=== PATIENT | male | born 1935 | race Caucasian/White ===

== ENCOUNTER 2016-04-13 16:41 | Observation (INO) | payer MEDICARE ==
[2016-04-13] MEDS ORDERED: ONDANSETRON HCL/PF 2 MG/ML VIAL IV ONE (17:04)
[2016-04-13] MEDS ORDERED: NORMAL SALINE 1,000 ML in NORMAL SALINE 1,000 ML IV ONE (17:04)
[2016-04-13 17:19] LABS: Hematocrit 39.7 % (42.0-52.0); Hemoglobin 13.8 gm/dL (13.5-18.0); Mean Cell Volume 96.1 fl (78-100); Mean Corpuscular Hemoglobin 33.4 pg (27-31); Mean Corpuscular Hgb Conc 34.8 g/dl (32-36); Mean Platelet Volume 9.1 fl (6.0-9.5); Neutrophil # 4.6 K/mm3 (1.3-6.0); Neutrophil % 85.5 % (42-75.0); Platelet Count 192 K/mm3 (150-450); Red Blood Count 4.13 M/mm3 (4.7-6.0); White Blood Count 5.4 K/mm3 (4.0-10.5)
[2016-04-13 17:35] LABS: ALT 25 U/L (19-67); AST 19 U/L (0-48); Albumin * 4.1 gm/dl (3.4-5.0); Alkaline Phosphatase * 47 U/L (50-170); Anion Gap 16.7 mmol/L (6.8-13.8); BUN/Creatinine Ratio 18.5 (9.0-21.6); Bilirubin, Total 0.6 mg/dL (0.0-1.1); Blood Urea Nitrogen 22 mg/dL (6-23); Ca. Corrected For Albumin 8.3 mg/dL (8.4-10.2); Calcium * 8.7 mg/dL (7.9-10.9); Carbon Dioxide 23.4 mmol/L (24-32.6); Chloride 102 mmol/L (97-106); Glucose * 150 mg/dL (70-110); Magnesium 1.6 mg/dL (1.2-2.8); Potassium 4.1 mmol/L (3.4-4.6); Sodium 138 mmol/L (132-142); Total Protein 7.3 gm/dL (6.2-8.2)
[2016-04-13] MEDS ORDERED: ONDANSETRON HCL/PF 2 MG/ML VIAL ONE (18:13)
--- NOTE | 2016-04-13 18:39 | ERNOTE ---
Medical Problem HPI - General Chief Complaint: General Assessment Time Seen by Provider: 04/13/16 16:53 Source: patient, family Exam Limitations: no limitations - Immun/Allergies/Home Medications Immunizations: IMMUNIZATION HX Immunizations Up to Date Yes History of Influenza Vaccine Yes Hx Pneumococcal Vaccination More Information Required Allergies/Adverse Reactions: Allergies No Known Allergies Allergy (Verified 04/13/16 16:53) Home Medications: HOME MEDICATIONS Glipizide 10 mg PO BID 01/13/14 [Last Taken Unknown] Metformin HCl 850 mg PO BID 01/13/14 [Last Taken Unknown] Aspirin [Durlaza] 162 mg PO HS 04/13/16 [Last Taken Unknown] Lisinopril 04/13/16 [Last Taken Unknown] - History of Present History Narrative: Patient was found at his house by his brother and sister. Patient was significantly weak was unable to get up and care for himself and actually been urinating in the bed due to the profound weakness. He stated that he started getting weak with a sore throat on Tuesday has been getting progressively worse over the last 4 days. At this point patient is unable to care for himself in any capacity. Timing: constant, getting worse Severity: severe Review of Systems - Review of Systems Constitutional: Present: See HPI, recent illness, fever, weakness EYE: Present: no symptoms reported ENT: Present: sore throat Respiratory: Present: no symptoms reported Cardiology: Present: no symptoms reported Gastrointestinal/Abdominal: Present: no symptoms reported Genitourinary: Present: no symptoms reported Musculoskeletal: Present: no symptoms reported Skin: Present: no symptoms reported Neurological: Present: no symptoms reported Endocrine: Present: no symptoms reported Hematologic/Lymphatic: Present: no symptoms reported Psych: Present: no symptoms reported - Patient's Past Medical History Patient History - Medical: Diabetes Type 2 Patient History - Cardiac/Respiratory: Hypertension Patient History - Cancer: No Hx of Cancer Patient History - Surgical Procedures: No surgical history Patient History - Other: None - Social History Living Situations: home Abuse History: No History of abuse Psych History: No pertinent hx Smoking Status: Never smoker Alcohol Use: none Drug Use: none - Immunizations Immunizations Up to Date: Yes Hx Pneumococcal Vaccination: More Information Required to Determine History of Influenza Vaccine: Yes Physical Exam - Physical Exam General Appearance: Present: wd/wn, alert, moderate distress Eye Exam: Normal inspection: bilateral, PERRL: bilateral Ears, Nose, Throat: Present: normal ENT inspection, nasal congestion, pharyngeal erythema Neck: Present: normal inspection, nontender Respiratory: Present: no respiratory distress, no accessory muscle use, chest nontender, lungs clear, other - fine coarse breath sounds Cardiovascular/Chest: Present: no murmur, normal peripheral pulses, tachycardia Gastrointestinal/Abdominal: Present: normal bowel sounds, nontender, nondistended, soft, no organomegaly Rectal Exam: Present: deferred Back Exam: Present: normal inspection, normal range of motion Extremity Exam: Present: normal inspection, non-tender, no edema, normal range of motion Neurological Exam: Present: alert, oriented, normal mood/affect Skin Exam: Present: normal color, warm/dry Lymphatic Exam: Present: no adenopathy ED Progress - Results and Orders Patient's Lab Results:: I have reviewed the patient's lab results. - Vital Signs Patient's Vital Signs:: I have reviewed the patient's vital signs. Vital Signs: Vital Signs 04/13/16 04/13/16 16:46 18:07 Temperature 37.7 C H Pulse Rate 108 H 100 Respiratory 16 20 Rate Blood Pressure 167/97 150/82 O2 Sat by Pulse 97 97 Oximetry - X-Ray X-Ray #1 X-Ray: abdomen Interpretation: Reviewed by me - CT/Ultrasound CT/Ultrasound Narrative: CT head results were reviewed. - Progress/Reassessment Chief Complaint: General Assessment Progress:: Unchanged - Transfer of Care Expected Disposition: Admit Plan - Plan Plan: Patient will need to be admitted due to the profound weakness in the presence of both influenza and the Streptococcus strep throat patient will most likely become further debilitated home. Care of the patient was discussed discussed with Felicia Farrar and she agrees patient be better served to be admitted for IV fluids. I did her 1.5 g of Unasyn to help the strep throat, however I believe we are past the 48 hour window for the influenza medications as we appear to be at day 4 days for the influenza. Departure - Departure Clinical Impression: Dehydration, Strep throat, Influenza A Disposition: [facility] Condition: Fair Referrals: Alphonse Watters MD [Primary Care Provider] -
[2016-04-13 19:16] LABS: Urine Bilirubin Negative (NEGATIVE); Urine Ketone 50 mg/dL (NEGATIVE); Urine Nitrite Negative (NEGATIVE); Urine Protein 30 mg/dL (NEGATIVE); Urine Specific Gravity 1.025 SP.GR. (1.005-1.030); Urine Urobilinogen Normal (NORMAL); Urine pH 6.5 pH (5.0-7.0)
[2016-04-13 19:19] LABS: Urine Amorphous Sediment TRACE (NONE-FEW); Urine Appearance Clear; Urine Bacteria None Seen; Urine Blood 10 /ul (NEGATIVE); Urine Color Yellow; Urine RBC None Seen /hpf (0-5); Urine WBC None Seen /hpf (0-5)
[2016-04-13] MEDS: AMPICILLIN SODIUM/SULBACTAM NA 1.5 GM in NORMAL SALINE 100 ML IV SCH (20:03)
--- NOTE | 2016-04-13 22:36 | HP ---
Chief Complaint - Chief Complaint Date of Service: 04/13/16 Time of Service: 22:17 Chief Complaint: " Coughing, weakness". Source of HPI- Pt unreliable, ER provider notes. History of Present Illness: Mr. Fraire is a 80-yr-old [facility] pt who normally sees Dr. Alphonse Chapman in [place], [place]. His PMH involves DM II and HTN. Pt does not appear to be a reliable historian about how he has been feeling or the events that led to hospitalization. All he is able to relay to me is that he has had a cough, but is unable to state how long it's been going on or if it's productive. Apparently , he was found at his house by his brother and sister, and was incontinent of urine and stool in his bed. The pt was extremely weak to be assisted out of bed. He was then brought to [facility] ER by his siblings. They complained that he was acting confused and had been having nausea/vomiting. During evaluation at the ED, the head CT did not have any acute findings and the Hematology & chemistry labs were unremarkable. The Abdominal X-ray did not show any signs of obstruction, but there was moderate amount of stool retention noted. He was also positive for Influenza A and group A strep. He will be admitted under observation status for IVF hydration due to signs of dehydration. - Patient's Past Medical History Patient History - Medical: Diabetes Type 2 Patient History - Cardiac/Respiratory: Hypertension Patient History - Cancer: No Hx of Cancer Patient History - Surgical Procedures: No surgical history Patient History - Other: None - Family History Father Family History - Medical: , No pertinent hx Mother Family History - Medical: , History Unknown - Social History Living Situations: alone Abuse History: No History of abuse Psych History: No pertinent hx Smoking Status: Never smoker Have you smoked in the past 12 months: No Alcohol Use: none Drug Use: none - Immunizations Immunizations Up to Date: Yes Hx Pneumococcal Vaccination: More Information Required to Determine History of Influenza Vaccine: Yes Review Of Systems (GEN) - Review of Systems Generalized/Overall Review: Present: Weakness, Chills. Absent: Fever EENTM: Absent: Double Vision, Nose Congestion Respiratory: Present: Cough. Absent: Shortness of Breath Cardiac: Absent: Chest Pain, Edema, Palpitations Abdominal: Absent: Nausea, Vomiting, Hematemesis Genitourinary: Absent: Burning, Itching, Urgency, Hematuria Musculoskeletal: Absent: Joint Pain, Back Pain, Muscle Pain Neurological: Present: Weakness. Absent: Headache, Anxiety Skin: Present: Dryness. Absent: Lesions Endocrine: Absent: Intolerance to Cold, Intolerance to Heat, Excessive Sweating Misc: All systems neg except as marked Allergies/Adverse Reactions: Allergies Allergy/AdvReac Type Severity Reaction Status Date / Time No Known Allergies Allergy Verified 04/13/16 16:53 Home Medications: HOME MEDICATIONS Glipizide 10 mg PO BID 01/13/14 [Last Taken Unknown] Metformin HCl 850 mg PO BID 01/13/14 [Last Taken Unknown] Aspirin [Durlaza] 162 mg PO HS 04/13/16 [Last Taken Unknown] Lisinopril 10 mg PO DAILY 04/13/16 [Last Taken Unknown] Pyridoxine HCl [Vitamin B-6] 50 mg PO DAILY 04/13/16 [Last Taken Unknown] Exam - Exam Vital Signs: Vital Signs - Last Taken Temp 36.9 C 04/13/16 21:52 Pulse 66 04/13/16 21:52 Resp 16 04/13/16 21:52 BP 133/77 04/13/16 21:52 Pulse Ox 96 04/13/16 21:52 Constitutional: Present: Alert, Oriented x3, Cooperative, No distress ENT Exam: Present: normal ENT inspection, muffled/hoarse voice, dry mucous membranes. Absent: nasal congestion, nasal drainage Eye Exam: bilateral eye: normal inspection, PERRL Neck: Present: full range of motion, supple, normal inspection Back Exam: Present: normal inspection, no CVA tenderness Breasts: Present: Exam deferred Respiratory: Present: no accessory muscle use, No wheezing Cardiovascular/Chest: Present: normal peripheral pulses, regular rate, rhythm, no edema, no murmur Abdomen: Present: Normal bowel sounds, nontender /Rectal: Present: Exam deferred Extremity: Present: normal range of motion, non-tender, normal inspection, no pedal edema Skin Exam: Present: warm/dry, no cyanosis Neurologic: Present: no motor/sensory deficits, alert, oriented x 3 Appearance: Present: appropriate appearance, appropriate insight Eye contact: Present: cooperative, good eye contact, normal speech Thoughts: Present: normal thought pattern, no apparent hallucination Diagnostic Studies: Laboratory Results WBC 5.4 K/mm3 (4.0-10.5) 04/13/16 17:15 RBC 4.13 M/mm3 (4.7-6.0) L 04/13/16 17:15 Hgb 13.8 gm/dL (13.5-18.0) 04/13/16 17:15 Hct 39.7 % (42.0-52.0) L 04/13/16 17:15 MCV 96.1 fl (78-100) 04/13/16 17:15 MCH 33.4 pg (27-31) H 04/13/16 17:15 MCHC 34.8 g/dl (32-36) 04/13/16 17:15 RDW 14.0 % (11.5-14.0) 04/13/16 17:15 Plt Count 192 K/mm3 (150-450) 04/13/16 17:15 MPV 9.1 fl (6.0-9.5) 04/13/16 17:15 Immature Gran % (Auto) 0.20 % (0.001-0.429) 04/13/16 17:15 Immature Gran # (Auto) 0.01 K/mm3 (0.000-0.0310) 04/13/16 17:15 Neutrophils % 85.5 % (42-75.0) H 04/13/16 17:15 Lymphocytes % 6.8 % (20-51) L 04/13/16 17:15 Monocytes % 5.9 % (0.0-9) 04/13/16 17:15 Eosinophils % 0.7 % (0.0-3.0) 04/13/16 17:15 Basophils % 0.9 % (0.0-1.0) 04/13/16 17:15 Nucleated RBC % 0.0 k/mm3 (0-1) 04/13/16 17:15 Neutrophils # 4.6 K/mm3 (1.3-6.0) 04/13/16 17:15 Lymphocytes # 0.4 k/mm3 (1.5-3.5) L 04/13/16 17:15 Monocytes # 0.3 k/mm3 (0.0-1.0) 04/13/16 17:15 Eosinophils # 0.0 k/mm3 (0.0-0.7) 04/13/16 17:15 Absolute Basophils 0.1 k/mm3 (0.0-0.1) 04/13/16 17:15 Sodium 138 mmol/L (132-142) 04/13/16 17:15 Plasma Sodium 139 mmol/L (130-142) 04/13/16 17:15 Potassium 4.1 mmol/L (3.4-4.6) 04/13/16 17:15 Chloride 102 mmol/L (97-106) 04/13/16 17:15 Carbon Dioxide 23.4 mmol/L (24-32.6) L 04/13/16 17:15 Anion Gap 16.7 mmol/L (6.8-13.8) H 04/13/16 17:15 BUN 22 mg/dL (6-23) 04/13/16 17:15 Creatinine 1.19 mg/dL (0.4-1.4) 04/13/16 17:15 Est GFR (Non-Af Amer) 63 mL/min (60-130) 04/13/16 17:15 BUN/Creatinine Ratio 18.5 (9.0-21.6) 04/13/16 17:15 Random Glucose 150 mg/dL (70-110) H 04/13/16 17:15 Calcium 8.7 mg/dL (7.9-10.9) 04/13/16 17:15 Calcium Adj for Albumin 8.3 mg/dL (8.4-10.2) L 04/13/16 17:15 Magnesium 1.6 mg/dL (1.2-2.8) 04/13/16 17:15 Total Bilirubin 0.6 mg/dL (0.0-1.1) 04/13/16 17:15 AST 19 U/L (0-48) 04/13/16 17:15 ALT 25 U/L (19-67) 04/13/16 17:15 Alkaline Phosphatase 47 U/L (50-170) L 04/13/16 17:15 Total Protein 7.3 gm/dL (6.2-8.2) 04/13/16 17:15 Albumin 4.1 gm/dl (3.4-5.0) 04/13/16 17:15 Urine Color Yellow 04/13/16 18:34 Urine Appearance Clear 04/13/16 18:34 Urine pH 6.5 pH (5.0-7.0) 04/13/16 18:34 Ur Specific [place] 1.025 SP.GR. (1.005-1.030) 04/13/16 18:34 Urine Protein 30 mg/dL (NEGATIVE) H 04/13/16 18:34 Urine Glucose (UA) 250 mg/dL (NEGATIVE) H 04/13/16 18:34 Urine Ketones 50 mg/dL (NEGATIVE) 04/13/16 18:34 Urine Blood 10 /ul (NEGATIVE) H 04/13/16 18:34 Urine Nitrate Negative (NEGATIVE) 04/13/16 18:34 Urine Bilirubin Negative mg/dl (NEGATIVE) 04/13/16 18:34 Prot Sulfosalicylic Acd 1+ mg/dL (0) 04/13/16 18:34 Urine Urobilinogen Normal EU/dl (NORMAL) 04/13/16 18:34 Ur Leukocyte Esterase Negative /ul (NEGATIVE) 04/13/16 18:34 Urine RBC None seen /hpf (0-5) 04/13/16 18:34 Urine WBC None seen /hpf (0-5) 04/13/16 18:34 Ur Epithelial Cells None seen /hpf (0-5) 04/13/16 18:34 Amorphous Sediment Trace (NONE-FEW) 04/13/16 18:34 Urine Bacteria None seen (NONE) 04/13/16 18:34 Urine Culture Comments No culture indicated 04/13/16 18:34 Serum Ketones Positive - 10mg/dl (NEGATIVE) H 04/13/16 17:15 Influenza Type A Ag Positive (NEGATIVE) H 04/13/16 17:40 Influenza Type B Ag Negative (NEGATIVE) 04/13/16 17:40 Group A Strep Rapid Positive (NEGATIVE) H 04/13/16 17:40 Assessment/Plan - Procedures Results: Will check CXR tonight see if there is any infection. - Assessment/Plan (1) Dehydration Assessment: Even though Laboratory studies & V.S were unremarkable, pt was noted to have mental status changes, weakness and lethargy according to family members. On physical examination, dry mucous membranes is noted. He had a low grade fever also at the ED. Will admit under observation status and hydrate with IVF overnight. Encourage fluid/oral intake. Problem: Acute (2) Influenza A Assessment: He tested Positive for influenza A. Had a fever of 37.7 and noted to have dry cough. Due to increased risk of morbidity & mortality: advanced age, DM, HTN, will start him on Osetalmivir 75mg b.i.d x 5 days. Problem: Acute (3) Strep throat Assessment: He tested positive for Group A strep. Will send for throat culture. Group A strep is still widely susceptible to Penicillin. It is appropriate to cover with empiric antimicrobial therapy as we wait for throat culture results. Will therefore start him on Amoxicillin 875 q 12 h x 7 days. Problem: Acute (4) Generalized weakness Assessment: Will involve PT for strengthening. Encourage ambulation. Problem: Acute (5) Constipation Assessment: Moderate stool retention noted on Xray film- Will give Mag Citrate. Problem: Acute (6) Diabetes mellitus Assessment: Stable- On Metformin & Glipizide. Problem: Chronic (7) HTN (hypertension) Assessment: Stable- On Lisinopril. Problem: Chronic Qualifiers: Hypertension type: essential hypertension Qualified Code(s): I10 - Essential (primary) hypertension
[2016-04-13] MEDS ORDERED: MAGNESIUM CITRATE 300 ML BTL PO ONE (22:52)
[2016-04-13] MEDS ORDERED: AMOXICILLIN TRIHYDRATE 875 MG TABLET PO SCH (23:45)
[2016-04-13] MEDS: NORMAL SALINE 1,000 ML IV PRN (23:46)
[2016-04-14] MEDS: AMPICILLIN SODIUM/SULBACTAM NA 1.5 GM in NORMAL SALINE 100 ML IV SCH (00:39)
[2016-04-14] MEDS ORDERED: OSELTAMIVIR PHOSPHATE 6 MG/ML BTL ONE (00:44)
[2016-04-14] MEDS ORDERED: ASPIRIN 81 MG TAB.CHEW PO SCH (00:45)
[2016-04-14] MEDS ORDERED: OSELTAMIVIR PHOSPHATE 6 MG/ML BTL PO ONE (01:15)
[2016-04-14] MEDS ORDERED: AMOXICILLIN TRIHYDRATE 250 MG/5 ML BTL PO ONE ×2 (01:15→01:30)
[2016-04-14] MEDS: AMOXICILLIN TRIHYDRATE 875 MG TABLET PO SCH ×2 (01:43→12:08)
[2016-04-14] MEDS: OSELTAMIVIR PHOSPHATE 30 MG CAPSULE PO SCH ×2 (01:43→09:51)
[2016-04-14] MEDS: NORMAL SALINE 1,000 ML IV PRN (08:38)
[2016-04-14] MEDS ORDERED: LISINOPRIL 10 MG TABLET PO SCH (09:00)
[2016-04-14] MEDS ORDERED: glipiZIDE 10 MG TABLET PO SCH (09:00)
[2016-04-14] MEDS ORDERED: PYRIDOXINE HCL (VITAMIN B6) 25 MG TABLET PO SCH (09:00)
[2016-04-14 10:11] LABS: Anion Gap 12.8 mmol/L (6.8-13.8); BUN/Creatinine Ratio 19.5 (9.0-21.6); Calcium * 8.4 mg/dL (7.9-10.9); Carbon Dioxide 26.5 mmol/L (24-32.6); Estimated Creat Clear 47.9; Potassium 5.3 mmol/L (3.4-4.6)
[2016-04-14 14:42] VITALS: BP 135/75
--- NOTE | 2016-04-14 17:05 | DS ---
(1) Constipation Problem: Acute Qualifiers: Constipation type: slow transit constipation Qualified Code(s): K59.01 - Slow transit constipation (2) Dehydration Problem: Acute (3) Generalized weakness Problem: Acute (4) Influenza A Problem: Acute (5) Strep throat Problem: Acute (6) Diabetes mellitus Problem: Chronic Qualifiers: Diabetes mellitus type: type 2 Diabetes mellitus complication status: without complication Diabetes mellitus senior living insulin use: unspecified watermelon inspector insulin use status Qualified Code(s): E11.9 - Type 2 diabetes mellitus without complications (7) HTN (hypertension) Problem: Chronic Qualifiers: Hypertension type: essential hypertension Qualified Code(s): I10 - Essential (primary) hypertension (8) Decreased creatinine clearance Problem: Acute Description of Stay: DATE OF ADMISSION: 04/13/16 DATE OF DISCHARGE: 04/14/16 DIAGNOSTICS: CT OF THE HEAD (04/13/16): no acute abnormalities. HOSPITAL COURSE: Víctor is a 80 year old male with a history of type 2 diabetes and htn who presented to the er with weakness, cough and fever. he was diagnosed in the er with influenza A and group A strep. labs were c/w evidence for dehydration. pt was admitted for iv fluids and started on oral amoxicilllin and oral tamiflu. over the course of the next day, the patient progressed well. his oral intake increased and he was able to ambulate in the florian with minimal assistance. pt will be discharged this afternoon with scripts for amoxicillin and tamiflu and instruct the patient to push oral fluids at home. pt has a good family support network at home. this plan was discussed with his family members earlier in the day and they were agreeable to it at that time. NEW MEDICATIONS: amoxicilllin: 875 mg po bid x 7 days tamiflu: 30 mg po bid x 5 days Follow up with PCP in 5-7 days. Procedures Performed: none Discharge Disposition: Home self care Disposition: Home self-care Condition: Fair Discharge Activity: Activity as tolerated Discharge Diet: General/regular food, Other - Push oral liquids Referrals: Alphonse Watters MD [Primary Care Provider] - One Week Problem Oriented Discharge Instructions to Patient/Family: Dehydration, Adult, [id number] Additional Patient Instructions (free text): amoxicillin and tamiflu scripts were sent to [facility]. Prescriptions (Any new or edited meds): Amoxicillin 875 mg PO BID #14 tablet Oseltamivir Phosphate [Tamiflu] 30 mg PO BID #10 capsule Complete Home Medications List: Complete Home Medication List: Glipizide 10 mg PO BID 01/13/14 Aspirin [Durlaza] 162 mg PO HS 04/13/16 Pyridoxine HCl [Vitamin B-6] 50 mg PO DAILY 04/13/16 Amoxicillin 875 mg PO BID #14 tablet 04/14/16 Lisinopril [Zestril] 10 mg PO DAILY 04/14/16 Oseltamivir Phosphate [Tamiflu] 30 mg PO BID #10 capsule 04/14/16 metFORMIN HCL [Glucophage] 850 mg PO BID 04/14/16
== END 2016-04-14 18:01 | disposition home or self-care (01) ==
LOC: ER 16:41 → INTOOBSV 19:29 → MS 19:29
PROVIDERS: ADMIT Internal Medicine; ATTEND Internal Medicine
DX: J09.X2 Influenza due to identified novel influenza A virus with other respiratory manifestations (principal); E86.0 Dehydration; J02.0 Streptococcal pharyngitis; E11.9 Type 2 diabetes mellitus without complications; Z79.84 Long term (current) use of oral hypoglycemic drugs; I10 Essential (primary) hypertension; K59.00 Constipation, unspecified; R53.1 Weakness; R94.5 Abnormal results of liver function studies